=== PATIENT | female | born 1985 | race Hispanic/Latino ===

== ENCOUNTER 2017-04-21 08:25 | Emergency (ER) | payer OTHER ==
[~2017-04-21] VITALS: Ht 160 cm; Wt 90.7 kg
[2017-04-21] MEDS ORDERED: LORAZEPAM 1 MG TAB PO ONE (10:00)
[2017-04-21] MEDS ORDERED: LORAZEPAM 0.5 MG TAB PO ONE (10:15)
[2017-04-21 10:58] VITALS: BP 144/88
== END 2017-04-21 10:47 | disposition home or self-care (01) ==
LOC: FSED 08:25
DX: R07.89 Other chest pain (principal); J06.9 Acute upper respiratory infection, unspecified; F41.1 Generalized anxiety disorder
CPT/HCPCS: 93005; 99284

== ENCOUNTER 2019-11-24 17:21 | Emergency (ER) | payer BC, OTHER ==
[~2019-11-24] VITALS: Ht 160 cm; Wt 83.9 kg
--- NOTE | 2019-11-24 17:50 | NUR ---
US NOTIFIED, ETA 30-45 MINUTES
--- NOTE | 2019-11-24 17:59 | Emergency Department Note ---
History of Present Illnes History of Present Illness Chief Complaint: vaginal bleeding History of Present Illness This is a 34 year old female, A4, who underwent invitro marina tilization on 10/28/2019, who had an ultrasound on 11/21/19 which showed an intrauterine with a "flickering heartbeat," and an approximate six- week gestation. Patient states that she passed some red blood this afternoon per vagina, followed by "a clot of tissue." She has changed one pad in the last 3 hours. She is having some mild, lower abdominal cramping, which she states "feels like period cramps." She denies any severe abdominal pain, flank pain, dysuria, frequency, urgency, nausea, vomiting, or fever. Patient's last , prior to this month, was 10 months ago. Patient's load out person - Dr. Mirza Jensen. Historian: Patient Arrival Mode: Car Coal Shooter Required: No Onset (how long ago): hour(s) (3) Location: lower abdomen. vagina Quality: cramping Radiation: Reports non-radiation Severity: mild Onset quality: sudden Duration (how long): hour(s) (3) Timing of current episode: intermittent Progression: waxing and waning Chronicity: new Context: Reports recent surgery (IVF on 10/28/2019); Denies recent illness Relieving factors: none Exacerbating factors: none Associated symptoms: Denies chest pain, Denies fever/chills, Denies nausea/vo miting, Denies shortness of breath Treatments prior to arrival: none Risk factors: 4 previous miscarriages; Past Medical/Family History Physician Review I have reviewed the patient's past medical and family history. Any updates have been documented here. Past Medical History Recent Fever: No Clinical Suspicion of Infectio: No New/Unexplained Change in Ment: No Past Medical History: None Past Surgical History: None Social History Smoking Cessation: Never Smoker Alcohol Use: None Any Illegal Drug Use: No TB Exposure/Symptoms: No Physically hurt or threatened: No Family History Family history of heart diseas: No Other Last Tetanus: UNK Any Pre-Existing Lines (PICC,: No Is patient up to date on immun: No Review of Systems Review of Systems Constitutional: Denies chills, Denies fever EENTM: Reports no symptoms Cardiovascular: Reports no symptoms Respiratory: Denies cough, Denies dyspnea Gastrointestinal: Reports abdominal pain (mild lower abdominal cramping); Denies constipation, Denies diarrhea, Denies nausea, Denies vomiting Genitourinary: Reports other (vaginal bleeding, bright red); Denies dysuria, Denies frequency Musculoskeletal: Denies back pain, Denies muscle pain, Denies neck pain Integumentary: Denies change in color Neurological: Denies headache Psychological: Reports no symptoms Review of other systems: All other systems negative Physical Exam Related Data Allergies: Coded Allergies: codeine (Verified Allergy, Unknown, 02/09/16) Vital signs reviewed: Yes Physical Exam CONSTITUTIONAL Constitutional: Present well-developed, Present well-nourished; Absent distressed, Absent ill appearing HENT HENT: Present normocephalic, Present atraumatic, Present oropharynx clear/moist, Present nose normal; Absent rhinorrhea HENT L/R: Present left ext ear normal, Present right ext ear normal EYES Eyes: Reports PERRL, Reports conjunctivae normal NECK Neck: Present ROM normal, Present supple; Absent cervical adenopathy PULMONARY Pulmonary: Present effort normal, Present breath sounds normal CARDIOVASCULAR Cardiovascular: Present regular rhythm, Present heart sounds normal, Present capillary refill normal, Present normal rate GASTROINTESTINAL Abdominal: Present soft, Present nontender, Present bowel sounds normal; Absent distension, Absent tender, Absent guarding GENITOURINARY Genitourinary: Present exam deferred SKIN Skin: Present warm, Present dry; Absent rash MUSCULOSKELETAL Musculoskeletal: Present ROM normal NEUROLOGICAL Neurological: Present alert, Present oriented x 3 PSYCHOLOGICAL Psychological: Present mood/affect normal, Present judgement normal Results Laboratory Laboratory BMP - nl except for gluc = 125, K= = 3.6; CBC - nl, no anemia; UA - blo - moderate, otherwise negative; UPT - positive; bHCG - 32,993.68; ABO - A+/-; Lab results reviewed: Yes Imaging Imaging results reviewed: Yes Impressions [place] [address] Patient Name: ROSELYN DIXON MR #: [id number] : 1985 Age/Sex: 34/F Req #: [id number] Adm Physician: Ordered by: MARY VICTOR MD Report #: [id number] Location: [facility] Room/Bed: Procedure: [id number] HOPD/US PELVIS OB <14 WEEKS-HOPD Exam Date: 11/24/19 Exam Time: 1814 REPORT STATUS: Signed EXAM: First Trimester Obstetric Pelvic Ultrasound INDICATION: Vaginal bleeding COMPARISON: None TECHNIQUE: Grayscale transverse and sagittal transabdominal and transvaginal images were obtained of the pelvis. Transvaginal imaging was medically necessary to better evaluate the endometrium, adnexa, and fetus. CLINICAL HISTORY: 34 year old A1 In vitro fertilization FINDINGS: Uterus: Orientation: Normal Size: 6.3 x 4.8 x 6.5 cm, minimally enlarged Mass: None Cervix: Normal Gestational Sac: Location: Intrauterine Average sac diameter: 1.46 cm Estimated sonographic GA: 5 weeks 5 days Appearance: Normal in contour Subchorionic hemorrhage: None Yolk sac: Normal Embryo/Fetus: [place] rump length: 0.42 cm Estimated sonographic GA: 6 weeks 1 day Cardiac activity: 127 bpm Ovaries not seen. No adnexal cysts or masses. Trace fluid in the pelvis. IMPRESSION: 1. Viable intrauterine : Routine followup. 2. Estimated sonographic gestational age: 6 weeks 1 day Signed by: Neville Samayoa DO on 11/24/2019 8:23 PM Dictated By: NEVILLE SAMAYOA DO 22 Transcribed By: JEM on 11/24/192022 COPY TO: MARY VICTOR MD~ Diagnostics Tests Diagnostic test(s) reviewed: Yes Assessment & Plan Medical Decision Making MDM - Follow-up with your MANAGER EQUITY tomorrow, and take the results of all diagnostic testing performed this evening in the ED. - Recommend that you rest for at least the next 24 hours, and avoid lifting more than 10 pounds. - Pelvic rest, until otherwise instructed by your load out person Assessment & Plan Final Impression: (1) First trimester bleeding (2) First trimester Depart Disposition: HOME, SELF-senior living Meds No Active Prescriptions or Reported Meds MARY VICTOR MD Nov 24, 2019 17:59
--- OUTSIDE RECORDS SUMMARY | 2019-11-24 18:18 | XMS REPORT | Continuity of Care Document ---
Author Author [facility] Organization [facility] Address [address] [place] [address] Phone Unavailable Care Team Providers Care Apartment Assistant Manager Name Role Phone Della BEARD DO PCP Payers Payer Name Policy Type Policy Number Effective Date Expiration Date Suad Lewis Ppo [id number] 2012 00:00:00 [facility] Problems This patient has no known problems. Allergies, Adverse Reactions, Alerts Allergy Name Allergy Type Status Severity Reaction(s) Onset Date Inacti ve Date Treating Clinician Comments Source Codeine Allergy to Substance Active 2016-02-09 00:00:00 [facility] Medications This patient has no known medications. Procedures This patient has no known procedures. Encounters Start Date/Time End Date/Time Encounter Type Admission Type [facility] Care Department Encounter ID Source 2017-04-21 08:25:00 2017-04-21 10:47:[address] [facility] [id number] [facility] Results This patient has no known results.
[2019-11-24 19:48] LABS: BASOPHILS % 0.4 % (0.0-1.0); EOSINOPHILS # (AUTO) 0.2 (0.0-0.4); EOSINOPHILS % 1.5 % (0.0-6.0); HEMATOCRIT 38.4 % (34.2-44.1); HEMOGLOBIN 12.6 g/dL (12.0-16.0); LYMPHOCYTES # (AUTO) 2.2 (1.0-3.2); LYMPHOCYTES % 21.5 % (18.0-39.1); MEAN CORPUSCULAR HEMOGLOBIN 28.4 pg (28-32); MEAN CORPUSCULAR HGB CONC 32.8 g/dL (31-35); MEAN CORPUSCULAR VOLUME 86.7 fL (81-99); MONOCYTES # (AUTO) 0.6 (0.2-0.8); MONOCYTES % 5.4 % (4.4-11.3); NEUTROPHILS # (AUTO) 7.3 (2.1-6.9); NEUTROPHILS % 70.8 % (38.7-80.0); PLATELET COUNT 267 x10e3/uL (140-360); RED BLOOD COUNT 4.43 x10e6/uL (3.6-5.1); RED CELL DISTRIBUTION WIDTH 12.9 % (11.7-14.4)
[2019-11-24 20:04] LABS: ANION GAP 17.6 mmol/L (8-16); BLOOD UREA NITROGEN 8 mg/dL (7-26); BUN/CREATININE RATIO 10 (6-25); CARBON DIOXIDE 16 mmol/L (22-29); CHLORIDE 108 mmol/L (98-107); CREATININE, SERUM 0.81 mg/dL (0.57-1.11); EST GLOMERULAR FILTRATION RATE > 60 ML/MIN (60-); GLUCOSE 93 mg/dL (74-118); POTASSIUM 3.6 mmol/L (3.5-5.1); SODIUM 138 mmol/L (136-145)
--- NOTE | 2019-11-24 20:27 | Diagnostic Imaging Report ---
EXAM: First Trimester Obstetric Pelvic Ultrasound INDICATION: Vaginal bleeding COMPARISON: None TECHNIQUE: Grayscale transverse and sagittal transabdominal and transvaginal images were obtained of the pelvis. Transvaginal imaging was medically necessary to better evaluate the endometrium, adnexa, and fetus. CLINICAL HISTORY: 34 year old A1 In vitro fertilization FINDINGS: Uterus: Orientation: Normal Size: 6.3 x 4.8 x 6.5 cm, minimally enlarged Mass: None Cervix: Normal Gestational Sac: Location: Intrauterine Average sac diameter: 1.46 cm Estimated sonographic GA: 5 weeks 5 days Appearance: Normal in contour Subchorionic hemorrhage: None Yolk sac: Normal Embryo/Fetus: [place] rump length: 0.42 cm Estimated sonographic GA: 6 weeks 1 day Cardiac activity: 127 bpm Ovaries not seen. No adnexal cysts or masses. Trace fluid in the pelvis. IMPRESSION: 1. Viable intrauterine : Routine followup. 2. Estimated sonographic gestational age: 6 weeks 1 day Signed by: Neville Samayoa DO on 11/24/2019 8:23 PM
== END 2019-11-24 21:07 | disposition home or self-care (01) ==
LOC: FSED 18:16
DX: O20.9 Hemorrhage in early pregnancy, unspecified (principal); R10.30 Lower abdominal pain, unspecified
CPT/HCPCS: 36415; 76801; 80048; 80053; 81003; 84702; 85025; 86900; 99284